=== PATIENT | male | born 1985 | race Caucasian/White ===

== ENCOUNTER 2019-01-05 18:03 | Emergency (ER) | payer BC ==
[2019-01-05 18:08] VITALS: BP 131/90; PULSE 105; TEMP 98.4; BMI 31.4
--- NOTE | 2019-01-05 18:09 | PDOC ---
Rapid Medical Evaluation Chief Complaint: Chest Pain Time Seen by Provider: 01/05/19 18:04 Medical Evaluation: Allergies Allergy/AdvReac Type Severity Reaction Status Date / Time No Known Allergies Allergy Verified 11/22/15 20:47 01/05/19 18:05 I have performed a brief in-person evaluation of this patient. The patient presents with a chief complaint of:acute onset on midsternal pain - worse with deep inspiration and pushing on chest wall - no recent illness Pertinent physical exam findings: reproducable pain to mid chest wall I have ordered the following: EKG The patient will proceed to the ED for further evaluation. 01/05/19 18:07 01/05/19 18:08 01/05/19 18:08 Discharge Disposition - Diagnosis Chest pain - Referrals - Patient Instructions - Post Discharge Activity
--- NOTE | 2019-01-05 19:04 | PDOC ---
History of Present Illness - General Chief Complaint: Chest Pain Stated Complaint: CHEST PAIN Time Seen by Provider: 01/05/19 18:04 - History of Present Illness Initial Comments: 01/05/19 19:03 33-year-old male without comorbidities presents for evaluation of right-sided chest pain which occurred today while he was cooking at home. No radiation of symptoms he states when he touched his chest it was tender however the tenderness has resolved as well as the chest pain Past History - Past Medical History Allergies/Adverse Reactions: Allergies Allergy/AdvReac Type Severity Reaction Status Date / Time No Known Allergies Allergy Verified 01/05/19 18:29 Home Medications: Ambulatory Orders Sulfamethoxazole/Trimethoprim [Bactrim Ds Tablet] 1 each PO BID #20 tablet MDD 2 11/22/15 COPD: No Thyroid Disease: No - Immunization History Immunization Up to Date: No - Psycho Social/Smoking Cessation Hx Smoking Status: No Smoking History: Never smoked Years of Tobacco Use: 8 Have you smoked in the past 12 months: No Number of Cigarettes Smoked Daily: 0 If you are a former smoker, when did you quit?: 2009 Information on smoking cessation initiated: No Hx Alcohol Use: No Drug/Substance Use Hx: No Substance Use Type: None Review of Systems - Review of Systems Cardiac (ROS): Yes: Chest Pain *Physical Exam - Vital Signs Last Vital Signs Temp Pulse Resp BP Pulse Ox 98.4 F 105 H 18 131/90 100 01/05/19 18:06 01/05/19 18:06 01/05/19 18:06 01/05/19 18:06 01/05/19 18:06 - Physical Exam Comments: 01/05/19 19:03 GENERAL: The patient is awake, alert, and fully oriented, in no acute distress. HEAD: Normal with no signs of trauma. EYES: sclera anicteric, conjunctiva clear. ENT: Ears normal NECK: Normal range of motion LUNGS: Breath sounds equal, clear to auscultation bilaterally. No wheezes, and no crackles. HEART: S1 and S2 without murmur, rub or gallop. ABDOMEN: Soft, nontender, normoactive bowel sounds. No guarding, no rebound. No masses. EXTREMITIES: Normal range of motion, no edema. No clubbing or cyanosis. No cords, erythema, or tenderness. NEUROLOGICAL: Cranial nerves II through XII grossly intact. Normal speech, normal gait. PSYCH: Normal mood, normal affect. SKIN: Warm, Dry, normal turgor, no rashes or lesions noted. ED Treatment Course - RADIOLOGY Radiology Studies Ordered: Category Date Time Status CHEST PA & LAT [RAD] Stat Radiology 01/05/19 18:35 Taken Medical Decision Making - Medical Decision Making 01/05/19 19:03 Normal sinus rhythm on EKG no ischemic changes normal chest x-ray no pneumo reproducible chest pain at home however not on examination today. 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 Tylenol and Motrin for pain follow-up with his primary care physician he has no cardiac risk factors Discharge - Discharge Information Problems reviewed: Yes Clinical Impression/Diagnosis: Chest pain Condition: Improved Disposition: HOME - Admission No - Follow up/Referral Referrals: Jesus Alberto Padilla MD [Primary Care Provider] - - Patient Discharge Instructions Patient Printed Discharge Instructions: DI for Atypical Chest Pain, DI for Chest Pain Additional Instructions: Return to the emergency room if your pain should return. Otherwise Tylenol and Motrin as directed for pain. Please follow-up with your primary care physician without fail in 1 to 2 days for further evaluation and treatment options. - Post Discharge Activity
--- NOTE | 2019-01-06 10:37 | EKG ---
Test Reason : Blood Pressure : / mmHG Vent. Rate : 089 BPM Atrial Rate : 089 BPM P-R Int : 148 ms QRS Dur : 094 ms QT Int : 354 ms P-R-T Axes : 041 046 038 degrees QTc Int : 430 ms NORMAL SINUS RHYTHM NORMAL ECG Confirmed by MD BRUCE, DIVYA ([id number]) on 01/06/2019 10:37:17 AM Referred By: Confirmed By:DIVYA BARRERA MD
== END 2019-01-05 19:17 | disposition home or self-care (01) ==
LOC: JERFT 18:03
DX: R07.89 Other chest pain (principal)
CPT/HCPCS: 71046-TC-FY; 93005; 93010; 99281-25

== ENCOUNTER 2019-09-27 09:23 | Emergency (ER) | payer BC ==
[2019-09-27 09:32] VITALS: BP 128/77; PULSE 73; TEMP 97.8; BMI 32.0
--- NOTE | 2019-09-27 10:10 | PDOC ---
History of Present Illness - General Chief Complaint: Bite Stated Complaint: TICK BITE Time Seen by Provider: 09/27/19 09:55 History Source: Patient Exam Limitations: No Limitations - History of Present Illness Initial Comments: 09/27/19 10:05 34-year-old male no significant past medical history presenting to the ED complaining of mild headache body aches fatigue and neck stiffness. 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 Remove the tick and did not present for medical treatment at that time denies presenting for care complaining of Lyme-like symptoms. Headache not associated with lacrimation, fever, vomiting, changes in vision, photophobia or neck stiffness; not maximal intensity at onset and non-exertional at onset. Pt otherwise denies: fevers, chills, rash, syncope, lightheadedness, dizziness, chest pain, shortness of breath, palpitations, back pain, abdominal pain, nausea, vomiting, diarrhea, constipation. Past History - Medical History Allergies/Adverse Reactions: Allergies Allergy/AdvReac Type Severity Reaction Status Date / Time No Known Allergies Allergy Verified 09/27/19 09:31 Home Medications: Ambulatory Orders Sulfamethoxazole/Trimethoprim [Bactrim Ds Tablet] 1 each PO BID #20 tablet MDD 2 11/22/15 Doxycycline Hyclate 100 mg PO BID 21 Days #42 capsule 09/27/19 COPD: No Thyroid Disease: No - Immunization History Immunization Up to Date: No - Psycho-Social/Smoking History Smoking Status: No Smoking History: Never smoked Years of Tobacco Use: 8 Have you smoked in the past 12 months: No Number of Cigarettes Smoked Daily: 0 If you are a former smoker, when did you quit?: 2010 - Substance Abuse Hx (Audit-C & DAST Scrn) How often the patient has a drink containing alcohol: Never Score: In Men: 4 or > Positive; In Women: 3 or > Positive: 0 Screen Result (Pos requires Nsg. Audit-10AR): Negative *Physical Exam - Vital Signs Last Vital Signs Temp Pulse Resp BP Pulse Ox 97.8 F 73 18 128/77 100 09/27/19 09:26 09/27/19 09:26 09/27/19 09:26 09/27/19 09:26 09/27/19 09:26 - Physical Exam 09/27/19 10:07 Gen: AAOx 3, no acute distress, comfortable, no signs of respiratory distress HENT: atraumatic, normocephalic with no laceration or contusion. Nasal mucosa without erythema. Oropharynx without erythema or exudates. Mucous membranes moist. EYES: PERRL, EOM intact, conjunctiva pink NECK: supple; trachea midline; no JVD, no lymphadenopathy, or thyromegaly CV: RRR no murmurs, gallops, or rubs. CHEST: CTA b/l no wheezing, rales or rhonchi ABD: +BS/ND. no TTP; soft, no rebound, no guarding EXTREMITY: no cyanosis or erythema. 2+ dorsalis pedis, posterior tibial, and radial pulse. No pedal edema; no calf swelling or tenderness SKIN: no rash, warm and dry, no diaphoresis HEME: no purpura or ecchymosis NEURO: normal speech, CN II-XII intact, sensation intact, normal gait, able to tip toe and heel walk, romberg and pronator drift absent, no cerebellar deficits, normal finger to nose, heel to ulloa, rapid alternating movements, no tremor, no dysmetria MS: 5/5 strength in all extremities, FROM intact in all extremities Medical Decision Making - Medical Decision Making 09/27/19 10:07 34-year-old male no past medical history presenting with Lyme-like symptoms after tick bite Vital signs stable We will test for Lyme and other tickborne diseases Regardless we will send home on Doxy 100 twice daily for 21 days Patient to follow-up with PCP without fail for results Patient appears well safe and stable for discharge Strict return precautions given as well as signs and symptoms requiring immediate return to the ED Patient educated on signs symptoms of Lyme disease Patient to complete antibiotic treatment unless directed otherwise by his PCP or Lyme titers negative Supportive care instructions explained and given to pt. Reasons to return emergently to ER explained and given. Importance of follow up with PMD and other specialists as indicated stressed to pt. Pt verbalized understanding of instructions. Pt to follow up with PMD in 2 days. Discharge - Discharge Information Problems reviewed: Yes Clinical Impression/Diagnosis: Tick bite Qualifiers: Encounter type: initial encounter Qualified Code(s): W57.XXXA - Bitten or stung by nonvenomous insect and other nonvenomous arthropods, initial encounter Condition: Stable Disposition: HOME - Additional Discharge Information Prescriptions: Doxycycline Hyclate 100 mg PO BID 21 Days #42 capsule - Follow up/Referral Referrals: Jesus Alberto Padilla MD [Primary Care Provider] - - Patient Discharge Instructions Patient Printed Discharge Instructions: DI for Lyme Disease, Protect Yourself from Tickborne Illnesses Additional Instructions: TAKE ANTIBIOTICS TO COMPLETION UNLESS TOLD OTHERWISE SEE YOUR PCP - Post Discharge Activity Work/Back to School Note: Back to Work
[2019-09-29 18:08] LABS: BABESIA MICROTI ANTIBODY IGG <1:10 (Neg:<1:10); BABESIA MICROTI ANTIBODY IGM <1:10 (Neg:<1:10)
[2019-09-30 15:07] LABS: E.chaff HME IgG Negative (Neg:<1:64)
== END 2019-09-27 10:22 | disposition home or self-care (01) ==
LOC: JERFT 09:23
DX: R51 Headache (principal); W57.XXXA Bitten or stung by nonvenomous insect and other nonvenomous arthropods, initial encounter
CPT/HCPCS: 36415; 86618; 86666; 86753; 86757; 99283-25

== ENCOUNTER 2020-01-02 12:37 | Emergency (ER) | payer BC ==
[2020-01-02] MEDS ORDERED: COLCHICINE 0.6 MG TAB PO ONE (13:04)
[2020-01-02] MEDS ORDERED: INDOMETHACIN 50 MG CAPSULE PO ONE (13:04)
[2020-01-02 13:10] VITALS: TEMP 99; BMI 31.4
[2020-01-02] MEDS ORDERED: COLCHICINE 0.6 MG CAP ONE (13:13)
[2020-01-02] MEDS ORDERED: INDOMETHACIN 25 MG CAPSULE ONE (13:14)
[2020-01-02 13:40] VITALS: BP 135/97; PULSE 87
== END 2020-01-02 14:04 | disposition home or self-care (01) ==
LOC: FER 12:37
DX: M79.674 Pain in right toe(s) (principal)
CPT/HCPCS: 73630-TC-RT-FY; 99283-25

== ENCOUNTER 2020-03-09 12:00 | Emergency (ER) | payer BC ==
[2020-03-09 12:09] VITALS: BP 170/94; PULSE 100; BMI 32.0
[2020-03-09 12:13] VITALS: TEMP 96.9
[2020-03-09] MEDS ORDERED: KETOROLAC TROMETHAMINE 60 MG/2 ML VIAL IM ONE (13:41)
[2020-03-09] MEDS ORDERED: KETOROLAC TROMETHAMINE 60 MG/2 ML VIAL ONE (13:43)
== END 2020-03-09 13:47 | disposition home or self-care (01) ==
LOC: JERFT 12:00
PROC: 3E0233Z Introduction of Anti-inflammatory into Muscle, Percutaneous Approach (ICD-10-PCS; principal; 2020-03-09)
DX: S39.012A Strain of muscle, fascia and tendon of lower back, initial encounter (principal)
CPT/HCPCS: 72100-TC-FY; 99284-25

== ENCOUNTER 2021-01-11 10:18 | Emergency (ER) | payer SELFPAY ==
[2021-01-11] MEDS ORDERED: SODIUM CHLORIDE 1,000 ML IV STA (10:24)
[2021-01-11 10:43] VITALS: TEMP 98.1; BMI 32.0
[2021-01-11 11:45] LABS: BASO % 4.4 % (0-2.0); EOS % 1.5 % (0-4.5); HEMATOCRIT 46.3 % (35.4-49); HEMOGLOBIN 15.9 GM/dl (11.7-16.9); LYMPH % 11.8 % (8-40); MCH 31.2 pg (25.7-33.7); MCHC 34.3 g/dl (32.0-35.9); MEAN PLT VOLUME 9.5 fl (7.5-11.1); NEUT % 75.3 % (42.8-82.8); PLATELET COUNT 193 10^3/uL (134-434); RBC 5.09 M/mm3 (4.00-5.60); RDW 12.5 % (11.9-15.9); WHITE BLOOD COUNT 8.7 K/mm3 (4.0-10.8)
[2021-01-11 11:49] LABS: ALBUMIN 4.8 g/dl (3.4-5.0); BILIRUBIN,TOTAL 1.1 mg/dl (0.2-1); CALCIUM 9.7 mg/dl (8.5-10); CREATININE 0.8 mg/dl (0.55-1.3); MAGNESIUM 1.9 mg/dL (1.8-2.4); TOT PROT 7.9 g/dl (6.4-8.2)
[2021-01-11] MEDS ORDERED: SODIUM CHLORIDE 0.9% 500 ML INFUS.BAG IV ONE (12:26)
[2021-01-11 13:39] VITALS: BP 138/97; PULSE 88
== END 2021-01-11 13:41 | disposition home or self-care (01) ==
LOC: FER 10:18
PROC: 3E0337Z Introduction of Electrolytic and Water Balance Substance into Peripheral Vein, Percutaneous Approach (ICD-10-PCS; principal; 2021-01-11)
DX: R42 Dizziness and giddiness (principal)
CPT/HCPCS: 36415; 71045-TC-FY; 80053; 82550; 82553; 82962; 83735; 84484; 85025; 93005; 99285-25

== ENCOUNTER 2024-04-02 21:13 | Emergency (ER) | payer OTHER ==
[2024-04-02 21:26] VITALS: BP 143/97; PULSE 86; RESP 18; TEMP 98.2; BMI 34.0
[2024-04-02 22:18] LABS: ALBUMIN 4.7 g/dl (3.4-5.0); ALK PHOS 61 U/L (45-117); ANION GAP 11 mmol/L (4-13); CALCIUM 9.4 mg/dl (8.5-10.1); CHLORIDE 103 mmol/L (98-107); CO2 26 mmol/L (21-32); CREATININE 0.9 mg/dl (0.6-1.3); GLUCOSE,RANDOM 97 mg/dl (74-106); POTASSIUM 3.8 mmol/L (3.5-5.1); SGOT/AST 22 U/L (15-37); SGPT/ALT 39 U/L (7-52); SODIUM 140 mmol/L (136-145); TOT PROT 7.2 g/dl (6.4-8.2)
[2024-04-02 22:21] LABS: HEMATOCRIT 41.9 % (35.4-49); HEMOGLOBIN 14.4 G/dL (11.7-16.9); MCH 30.5 pg (25.7-33.7); MCHC 34.5 g/dl (32.0-35.9); MEAN CELL VOLUME 88.5 fl (80-96); MEAN PLT VOLUME 8.9 fl (7.5-11.1); PLATELET COUNT 186.4 10^3/uL (134-434); RBC 4.74 10^6/uL (4.00-5.60); RDW 13.5 % (11.9-15.9); WHITE BLOOD COUNT 8.3 10^3/uL (4.0-10.8)
[2024-04-02 22:29] LABS: PLATELET ESTIMATE ADEQUATE
[2024-04-02 23:58] LABS: HIV INTERPRETATION NEGATIVE (NEGATIVE)
== END 2024-04-02 22:48 | disposition home or self-care (01) ==
LOC: FER 21:13
DX: M79.622 Pain in left upper arm (principal)
CPT/HCPCS: 36415; 80053; 84484; 85027; 86803; 87389; 93005; 99284-25